=== PATIENT | male | born 2000 | race Caucasian/White ===

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

== ENCOUNTER → 2022-12-09 | Outpatient (REF) | payer OTHER ==
[~2022-12-09] MED LIST: MULT1TAB18 PO; MULT1TAB8 PO; VITA200016 PO
== END ==
LOC: M WUC 21:26
PROVIDERS: ATTEND Physician Assistant
DX: J02.9 Acute pharyngitis, unspecified (principal)